=== PATIENT | female | born 1985 | race Caucasian/White ===

== ENCOUNTER 2021-10-01 15:21 | Emergency (ER) | payer BC, SELFPAY ==
--- NOTE | ~2021-10-01 | CT_ITS ---
EXAMINATION: CT ANGIOGRAM OF THE CHEST WITH AND WITHOUT CONTRAST (CT PULMONARY ANGIOGRAM FOR PE) CLINICAL INFORMATION: Reason for Exam COVID positive, 09/16/2021, chest pain, SOB, r/o PE COMPARISON: None TECHNIQUE: Prior to contrast administration, noncontrast localization images were obtained. Subsequently, multidetector volumetric imaging was performed from the thoracic inlet to below the diaphragms following the administration of 80 mL Omnipaque 350 intravenous contrast. No contrast reaction reported Sagittal, coronal, and MIP oblique sagittal reformatted images were obtained on the CT workstation, uploaded to PACS, and reviewed. This CT examination was performed using dose optimization techniques as appropriate, variously including the following: *Automated exposure control *Adjustment of mA and/or kV according to patient size (this includes techniques or standardized protocols for targeted exams where dose is matched to indication/reason for exam; i.e. extremities or head) *Use of iterative reconstruction technique Total exam dose-length product 257 mGy-cm FINDINGS: QUALITY OF STUDY/CONTRAST BOLUS: Satisfactory. PULMONARY ARTERIES: No pulmonary embolism. THORACIC AORTA: No thoracic aortic aneurysm. LUNG: A distal mucus impacted bronchus is noted in the left lower lobe, 8:303, with few adjacent tree in bud nodules PLEURA: No pleural effusion or pneumothorax. MEDIASTINUM: Normal heart size. No pericardial effusion. No hilar or mediastinal lymphadenopathy. No evidence of septal bowing or right heart strain. CHEST WALL/AXILLA: No axillary or internal mammary lymphadenopathy. OSSEOUS STRUCTURES: No acute or suspicious osseous abnormality. UPPER ABDOMEN: Status post cholecystectomy. No reflux of contrast into the hepatic veins to suggest elevated right heart pressures. CT/CT angio chest PE protocol IMPRESSION: No pulmonary nodules. A distal mucus impacted bronchus is noted in the left lower lobe with few adjacent tree in bud nodules, morphologically favoring a focus of airways infection/inflammation. An optional month follow-up CT could be considered to assess stability or resolution if patient is high risk for malignancy. VTE: negative
[2021-10-01 15:27] VITALS: BP 119/98; PULSE 116; RESP 18; TEMP 36.5; O2SAT 99; BMI 21.6
--- NOTE | 2021-10-01 15:31 | ECG_ITS ---
Test Reason : CHEST PAIN Blood Pressure : / mmHG Vent. Rate : 114 BPM Atrial Rate : 114 BPM P-R Int : 136 ms QRS Dur : 070 ms QT Int : 314 ms P-R-T Axes : 041 023 041 degrees QTc Int : 432 ms Sinus tachycardia Nonspecific ST abnormality Abnormal ECG No previous ECGs available Referred By: Generic ED Physician Electronically Signed By:DEANNA NGUYEN MD
[2021-10-01 15:49] LABS: MANUAL DIFF FLAG NO
[2021-10-01 15:59] LABS: Basophils Percent Auto 0.4 % (0-2); Eosinophils Absolute Auto 0.2 X10*3/uL (0.0-0.4); Eosinophils Percent Auto 1.7 % (0-4); Hematocrit 41.7 % (37.0-47.0); Hemoglobin 13.4 g/dl (12.0-16.0); Imm Gran Abs Auto 0.04 X10*3/uL (0.00-0.03); Imm Gran Pct Auto 0.4 % (0.0-0.4); Lymphocytes Absolute Auto 4.6 X10*3/uL (1.2-4.9); Lymphocytes Percent Auto 41.1 % (20-40); Mean Corpuscular HGB Conc 32.1 g/dl (31.0-35.0); Mean Corpuscular Hemoglobin 27.2 pg (27.0-33.0); Mean Corpuscular Volume 84.8 fL (80.0-98.0); Monocytes Absolute Auto 1.1 X10*3/uL (0.1-1.2); Neutrophils Absolute Auto 5.2 x10*3/uL (2.0-8.3); Neutrophils Percent Auto 46.4 % (45-73); Platelet Count 344 X10*3/uL (160-400); Red Blood Count 4.92 X10*6/uL (4.20-5.50); Red Cell Distribution Width 12.3 % (11.0-16.0); White Blood Count 11.1 X10*3/uL (4.8-10.8)
[2021-10-01 16:02] LABS: D Dimer High Sensitivity < 150 NG/ML
[2021-10-01 16:10] LABS: Alanine Aminotransferase 24 U/L (0-31); Albumin Level 4.5 g/dL (3.5-5.0); Alkaline Phosphatase 85 U/L (39-117); Anion Gap 14 (12-20); Aspartate Amino Transferase 19 U/L (5-31); Bilirubin Total 0.2 mg/dL (0.0-1.0); Blood Urea Nitrogen 10 mg/dL (9-16); Calcium 9.9 mg/dL (8.4-10.2); Carbon Dioxide 24 mmol/L (22-29); Chloride 103 mmol/L (96-108); Creatinine Clr Calc Pharmacy 85.8; Estimated Glomerular Filt Rate > 60; Glucose Random 107 mg/dL (60-115); Potassium 3.7 mmol/L (3.3-5.1); Sodium 137 mmol/L (135-145); Total Protein 7.7 g/dL (6.5-8.0)
[2021-10-01 16:13] LABS: INTERNATIONAL NORM RATIO 0.9 (0.9-1.1); Prothrombin Time 10.5 SEC (9.9-13.0)
[2021-10-01 16:15] LABS: Appearance Urine CLEAR; Color Urine YELLOW; Glucose Urine UA NEG (NEG); Leukocyte Esterase Urine NEG (NEG); Nitrite Urine NEG (NEG); Urine Blood NEG (NEG); Urine Ketones NEG (NEG); Urine Protein NEG (NEG-TRACE)
[2021-10-01 16:15] LABS: Partial Thromboplastin Time 30.9 SEC (24.1-38.0)
[2021-10-01 16:20] LABS: UPreg QC Valid YES; Urine Pregnancy NEGATIVE (NEGATIVE)
[2021-10-01 16:47] LABS: Procalcitonin < 0.02 ng/mL
[2021-10-01 16:48] LABS: Troponin-I High Sensitivity < 3.5 ng/L (<3.5-17.0)
[2021-10-01 16:49] LABS: C Reactive Protein 0.04 mg/dL (< or = 0.50); Erythrocyte Sedimentation Rate 6 MM/HR (0-20); Lactate Dehydrogenase 186 U/L (122-220)
[2021-10-01] MEDS: 0.9 % Sodium Chloride 1,000 ML 999 ML IV (16:55)
[2021-10-01] MEDS: LORazepam 2 MG/ML VIAL 1 MG IVPUSH (16:55)
[2021-10-01 17:11] LABS: Ferritin 44 ng/mL (10-122)
[2021-10-01] MEDS: iohexoL 350 MG/ML 100 ML INFUS..BTL IV (17:25)
[2021-10-01] MEDS: Ketorolac Tromethamine 30 MG/ML VIAL 15 MG IVPUSH (17:51)
--- NOTE | 2021-10-01 18:12 | PC.NURSE ---
pt awaiting ct results, states chest tightness almost resolved after medication
--- NOTE | 2021-10-01 18:43 | ED_ITS ---
HPI - Chest Pain General Chief Complaint: Arrhythmia/Palpitations Stated Complaint: high pulse rate Time Seen by Provider: 10/01/21 16:00 Source: patient Mode of arrival: ambulatory Limitations: no limitations History of Present Illness HPI narrative: 36-year-old female who presents emergency department for evaluation rapid heart rate, chest pain, shortness of breath and decreased O2 saturation. The patient states that she became symptomatic on 09/17/2021 and tested positive for COVID on 09/19/2021 ( symptomatic 14 days prior to evaluation ) patient states that she has been experiencing headaches, shortness of breath, dyspnea on exertion, fever, chills and fatigue. She states she has been monitoring her O2 saturation at home and her O2 saturations have been in the 94-96% range. She states that prior to coming to the emergency department she felt her heart was fluttering and racing. She checked her pulse ox and her pulse was 116 her O2 saturation was 91%. She also developed pain in the center of her chest which she describes as a tightness which was worse if she pushes on her chest and impr stef if she took a deep breath in and out. She states the tightness with moderate to severe in intensity. She felt dizzy and lightheaded. She states since onset the tightness is been intermittent and seems to last 10-15 minutes and comes and goes. Patient states she does have anxiety and she states that her anxiety got significantly worse after the onset of her symptoms. She states she was experiencing numbness in both her hands and feet and felt lightheaded dizzy as if she was going to pass out. 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 She has a history of exercise an allergy induced asthma. Surgical history: Repair of her club foot when she was a child, cholecystectomy. Social history: The patient denies tobacco use. She occasionally drinks alcohol. She denies drug use. Medical History COVID-19 COVID-19 Social History Social History Advance Directives: No Advance Directives Information Provided: No Patient : No Physical Exam Verdana 4l Vital Signs: Verdana 4d Verdana 4d Vital Signs: Verdana 4d Verdana 4Bd Last Vital Signs Verdana 4d Business Development Representative New 4d Business Development Representative New 4d Temp 97.7 F 10/01/21 15:27 Business Development Representative New 4d Pulse 116 H 10/01/21 15:27 Business Development Representative New 4d Resp 18 10/01/21 15:27 BP 119/98 H 10/01/21 15:27 Pulse Ox 99 10/01/21 15:27 BMI result Body Mass Index 21.6 Const: Other: Awake, alert, female patient, very pleasant and cooperative she does appear to be anxious, answers all questions appropriately HENMT: Head: Yes normal to inspection, Yes normocephalic and Yes atraumatic Ears: external ears normal General nose exam: Normal external nose present Face and sinus: Yes normal facial exam Mouth: Normal oral and palatal mucosa present Throat: Yes posterior oropharynx normal Eyes: General: appearance normal, both eyes and all related structures Pupils: Equal, round and reactive pupils present Neck: Neck: Yes normal visual inspection, Yes no lymphadenopathy, Yes trachea midline and Yes supple Chest: Chest palpation & inspection: normal inspection of the chest and normal palpation of entire chest wall Resp: Effort & Inspection: normal respiratory effort and able to speak in complete sentences Auscultation: clear to auscultation bilaterally Cardio: Rate: tachycardic Rhythm: regular rhythm Heart sounds: S1 normal heart sound present, S2 normal heart sound present and no murmurs GI: Inspection: Yes normal to inspection Palpation (GI): Soft to palpation, nontender and no guarding Auscultation: normal bowel sounds : General: Yes no CVA tenderness Back/Spine/Pelvis: Back: no CVA tenderness Skin: General skin exam: no rashes or lesions noted Neuro: Cranial nerves: Yes CN's II-XII intact bilaterally and Yes Equal, round and reactive pupils present Cognition (Neuro): normal cognition Motor exam (neuro): 5/5 motor strength present throughout Extrem: General: Yes normal to inspection Psych: Appearance: grossly normal Speech and movement: Normal speech and movement present Affect: normal affect Attitude: cooperative Thought process: Normal thought process present Thought content: Normal thought content present Course Course Course Narrative: 36-year-old female who had symptoms of COVID approximately 14 days prior in tested positive approximately 12 days prior to evaluation who presents emergency department for evaluation of sudden onset of chest tightness, tachycardia and a decrease in her O2 saturation from 96% to 91% on room air. Patient also presents for evaluation of anxiety. She states that she has baseline anxiety but since she has had COVID she has been more anxious. On initial presentation, the patient was found to be tachycardic With a pulse of 116 but her O2 saturation was 99% on room air. Patient had 12 EKG which did reveal less than [address] segment depression in leads 1, 2, AVF and approximately [address] segment depression in V3 through V6. On my examination the patient was anxious otherwise her exam was unremarkable. Patient's laboratory evaluation revealed a normal CBC, non elevated D-dimer, normal comprehensive metabolic panel, non elevated COVID-19 inflammatory markers ( D-dimer, CRP, LDH, ferritin, sedimentation rate ). CT scan of the patient's chest revealed no pulmonary embolism, the radiologist noted a distal mucus impacted bronchitis in the left lower lobe with few adjacent tree-in-bud nodules suggesting focal airway infection/information. Radiologist recommended follow-up in 1 month with [address] scan if patient is at high risk for malignancy which I do not think is the case in this patient. I believe that this may represent mucous plugging and I do not think that she needs antibiotics. The patient will be discharged home with printed and verbal instructions. MDM - Chest Pain Lab Data Result diagrams: 10/01/21 15:44 10/01/21 15:44 Labs: Lab Results 10/01/21 10/01/21 10/01/21 Range/Units 15:44 15:44 15:44 WBC 11.1 H (4.8-10.8) X10*3/uL RBC 4.92 (4.20-5.50) X10*6/uL Hgb 13.4 (12.0-16.0) g/dl Hct 41.7 (37.0-47.0) % MCV 84.8 (80.0-98.0) fL MCH 27.2 (27.0-33.0) pg MCHC 32.1 (31.0-35.0) g/dl RDW 12.3 (11.0-16.0) % Plt Count 344 (160-400) X10*3/uL MPV 10.0 (9.4-12.3) fL Immature Gran % (Auto) 0.4 (0.0-0.4) % Neut % (Auto) 46.4 (45-73) % Lymph % (Auto) 41.1 H (20-40) % [place] % (Auto) 10.0 (2-11) % Eos % (Auto) 1.7 (0-4) % Baso % (Auto) 0.4 (0-2) % Lymph # (Auto) 4.6 (1.2-4.9) X10*3/uL [place] # (Auto) 1.1 (0.1-1.2) X10*3/uL Eos # (Auto) 0.2 (0.0-0.4) X10*3/uL Baso # (Auto) 0.0 (0.0-0.2) X10*3/uL Abs Immat Gran (auto) 0.04 H (0.00-0.03) X10*3/uL Absolute Neuts (auto) 5.2 (2.0-8.3) x10*3/uL Absolute Nucleated RBC 0.000 (0.0-0.012) X10*3/uL Nucleated RBC % (auto) 0.0 (0.0-0.2) /100WBC ESR (0-20) MM/HR PT 10.5 (9.9-13.0) SEC INR 0.9 (0.9-1.1) APTT 30.9 (24.1-38.0) SEC D-Dimer High Sensitivty < 150 NG/ML Sodium 137 (135-145) mmol/L Potassium 3.7 (3.3-5.1) mmol/L Chloride 103 (96-108) mmol/L Carbon Dioxide 24 (22-29) mmol/L Anion Gap 14 (12-20) BUN 10 (9-16) mg/dL Creatinine 0.89 (0.5-1.4) mg/dL Estim Creat Clear Calc 85.8 Estimated GFR > 60 Random Glucose 107 (60-115) mg/dL Calcium 9.9 (8.4-10.2) mg/dL Ferritin 44 (10-122) ng/mL Total Bilirubin 0.2 (0.0-1.0) mg/dL AST 19 (5-31) U/L ALT 24 (0-31) U/L Alkaline Phosphatase 85 (39-117) U/L Lactate Dehydrogenase 186 (122-220) U/L Troponin I High Sens (<3.5-17.0) ng/L C-Reactive Protein 0.04 (< or = 0.50) mg/dL Total Protein 7.7 (6.5-8.0) g/dL Albumin 4.5 (3.5-5.0) g/dL Procalcitonin ng/mL Urine Color Urine Appearance Urine pH (5.0-8.0) Ur Specific [place] (1.005-1.025) Urine Protein (NEG-TRACE) MG/DL Urine Glucose (UA) (NEG) MG/DL Urine Ketones (NEG) MG/DL Urine Blood (NEG) Urine Nitrite (NEG) Ur Leukocyte Esterase (NEG) Urine Test (NEGATIVE) 10/01/21 10/01/21 10/01/21 Range/Units 15:44 15:44 15:44 WBC (4.8-10.8) X10*3/uL RBC (4.20-5.50) X10*6/uL Hgb (12.0-16.0) g/dl Hct (37.0-47.0) % MCV (80.0-98.0) fL MCH (27.0-33.0) pg MCHC (31.0-35.0) g/dl RDW (11.0-16.0) % Plt Count (160-400) X10*3/uL MPV (9.4-12.3) fL Immature Gran % (Auto) (0.0-0.4) % Neut % (Auto) (45-73) % Lymph % (Auto) (20-40) % [place] % (Auto) (2-11) % Eos % (Auto) (0-4) % Baso % (Auto) (0-2) % Lymph # (Auto) (1.2-4.9) X10*3/uL [place] # (Auto) (0.1-1.2) X10*3/uL Eos # (Auto) (0.0-0.4) X10*3/uL Baso # (Auto) (0.0-0.2) X10*3/uL Abs Immat Gran (auto) (0.00-0.03) X10*3/uL Absolute Neuts (auto) (2.0-8.3) x10*3/uL Absolute Nucleated RBC (0.0-0.012) X10*3/uL Nucleated RBC % (auto) (0.0-0.2) /100WBC ESR 6 (0-20) MM/HR PT (9.9-13.0) SEC INR (0.9-1.1) APTT (24.1-38.0) SEC D-Dimer High Sensitivty NG/ML Sodium (135-145) mmol/L Potassium (3.3-5.1) mmol/L Chloride (96-108) mmol/L Carbon Dioxide (22-29) mmol/L Anion Gap (12-20) BUN (9-16) mg/dL Creatinine (0.5-1.4) mg/dL Estim Creat Clear Calc Estimated GFR Random Glucose (60-115) mg/dL Calcium (8.4-10.2) mg/dL Ferritin (10-122) ng/mL Total Bilirubin (0.0-1.0) mg/dL AST (5-31) U/L ALT (0-31) U/L Alkaline Phosphatase (39-117) U/L Lactate Dehydrogenase (122-220) U/L Troponin I High Sens < 3.5 (<3.5-17.0) ng/L C-Reactive Protein (< or = 0.50) mg/dL Total Protein (6.5-8.0) g/dL Albumin (3.5-5.0) g/dL Procalcitonin < 0.02 ng/mL Urine Color Urine Appearance Urine pH (5.0-8.0) Ur Specific [place] (1.005-1.025) Urine Protein (NEG-TRACE) MG/DL Urine Glucose (UA) (NEG) MG/DL Urine Ketones (NEG) MG/DL Urine Blood (NEG) Urine Nitrite (NEG) Ur Leukocyte Esterase (NEG) Urine Test (NEGATIVE) 10/01/21 10/01/21 Range/Units 16:01 16:01 WBC (4.8-10.8) X10*3/uL RBC (4.20-5.50) X10*6/uL Hgb (12.0-16.0) g/dl Hct (37.0-47.0) % MCV (80.0-98.0) fL MCH (27.0-33.0) pg MCHC (31.0-35.0) g/dl RDW (11.0-16.0) % Plt Count (160-400) X10*3/uL MPV (9.4-12.3) fL Immature Gran % (Auto) (0.0-0.4) % Neut % (Auto) (45-73) % Lymph % (Auto) (20-40) % [place] % (Auto) (2-11) % Eos % (Auto) (0-4) % Baso % (Auto) (0-2) % Lymph # (Auto) (1.2-4.9) X10*3/uL [place] # (Auto) (0.1-1.2) X10*3/uL Eos # (Auto) (0.0-0.4) X10*3/uL Baso # (Auto) (0.0-0.2) X10*3/uL Abs Immat Gran (auto) (0.00-0.03) X10*3/uL Absolute Neuts (auto) (2.0-8.3) x10*3/uL Absolute Nucleated RBC (0.0-0.012) X10*3/uL Nucleated RBC % (auto) (0.0-0.2) /100WBC ESR (0-20) MM/HR PT (9.9-13.0) SEC INR (0.9-1.1) APTT (24.1-38.0) SEC D-Dimer High Sensitivty NG/ML Sodium (135-145) mmol/L Potassium (3.3-5.1) mmol/L Chloride (96-108) mmol/L Carbon Dioxide (22-29) mmol/L Anion Gap (12-20) BUN (9-16) mg/dL Creatinine (0.5-1.4) mg/dL Estim Creat Clear Calc Estimated GFR Random Glucose (60-115) mg/dL Calcium (8.4-10.2) mg/dL Ferritin (10-122) ng/mL Total Bilirubin (0.0-1.0) mg/dL AST (5-31) U/L ALT (0-31) U/L Alkaline Phosphatase (39-117) U/L Lactate Dehydrogenase (122-220) U/L Troponin I High Sens (<3.5-17.0) ng/L C-Reactive Protein (< or = 0.50) mg/dL Total Protein (6.5-8.0) g/dL Albumin (3.5-5.0) g/dL Procalcitonin ng/mL Urine Color YELLOW Urine Appearance CLEAR Urine pH 6.0 (5.0-8.0) Ur Specific [place] 1.010 (1.005-1.025) Urine Protein NEG (NEG-TRACE) MG/DL Urine Glucose (UA) NEG (NEG) MG/DL Urine Ketones NEG (NEG) MG/DL Urine Blood NEG (NEG) Urine Nitrite NEG (NEG) Ur Leukocyte Esterase NEG (NEG) Urine Test NEGATIVE (NEGATIVE) ECG Data ECG #1: Attestation: I personally reviewed and interpreted this ECG as follows: Interpretation: 1534: Sinus tachycardia with a rate of 114, normal ID interval, QRS duration and QTC interval, less than [address] segment depression leads 1, 2 and AVF, [address] segment depression V3 through V6. No old EKG for comparison. Discharge Plan Discharge Clinical Impression: Chest pain, Anxiety, Tachycardia, COVID-19 Patient Disposition: Home, Self-Care Additional Instructions: Your blood work was all normal. There are several inflammatory markers for COVID infection and COVID pneumonia, all of your inflammatory marker were normal, these included a D-dimer, CRP, sedimentation rate, ferritin and LDH. Given this fact, I suspect that you have cleared the COVID-19 virus and you can come off isolation and return to normal precautions. There is a marker for heart damaged called the high sensitivity troponin I. Yours was undetectable suggesting that your chest pain was not caused by your heart. The CT scan of your lungs with IV contrast looking for pulmonary embolism (blood clot to your lungs) was negative for blood clot your lungs which is reassuring. You do have some mucus in your bronchials and this is called mucus plugging, this should resolve by itself. You do not need antibiotics. Some of your symptoms today including the shortness of breath, fast heart rate, lightheadedness and numbness in your hands is related to anxiety. You should consider following up with her doctor for treatment anxiety. Follow-up with your doctor in 2 days. Please return to the emergency department if your symptoms get worse or if you develop any symptoms that are concerning to you.
[2021-10-01 19:37] VITALS: BP 135/84; PULSE 96; RESP 16; O2SAT 98
[2021-10-01 19:38] VITALS: BP 135/84; PULSE 96; RESP 16
== END 2021-10-01 19:40 | disposition home or self-care (01) ==
PROVIDERS: Emergency Provider Emergency Medicine Emergency Medical Services; PCP Internal Medicine
DX: U07.1 COVID-19 (principal); R07.9 Chest pain, unspecified; R00.0 Tachycardia, unspecified; F41.9 Anxiety disorder, unspecified
CPT/HCPCS: 36415; 71275; 80053; 81003; 81025; 82728; 83615; 84145; 84484; 85025; 85379; 85610; 85652; 85730; 86140; 93005; 96361; 96374; 96375; 99284; J1885; J2060; Q9967

== ENCOUNTER 2023-09-15 23:57 | Emergency (ER) | payer BC, SELFPAY ==
--- NOTE | 2023-09-15 | ECG_ITS ---
Test Reason : CHEST TIGHTNESS Blood Pressure : / mmHG Vent. Rate : 087 BPM Atrial Rate : 087 BPM P-R Int : 124 ms QRS Dur : 070 ms QT Int : 362 ms P-R-T Axes : 005 001 013 degrees QTc Int : 435 ms Normal sinus rhythm with sinus arrhythmia Normal ECG When compared with ECG of 01-OCT-2021 15:34, Inverted T waves have replaced nonspecific T wave abnormality in Inferior leads Referred By: Generic ED Physician Electronically Signed By:DEANNA NGUYEN MD
--- NOTE | ~2023-09-15 | XR_ITS ---
EXAMINATION: XR CHEST CLINICAL INFORMATION: Rule out pneumonia. COMPARISON: CT dated 10/01/2021 TECHNIQUE: AP portable upright view of the chest FINDINGS: EKG leads are within the chest. Lungs are clear. No consolidation, pneumothorax, or pleural effusion. Cardiac and mediastinal contours are normal. Pulmonary vasculature is unremarkable. Osseous structures are unremarkable. XR/XR chest 1V IMPRESSION: No acute cardiopulmonary findings
[2023-09-16 00:14] VITALS: BP 186/78; PULSE 87; RESP 19; TEMP 36.2; O2SAT 98; BMI 22.5
[2023-09-16 00:17] LABS: MANUAL DIFF FLAG NO
[2023-09-16 00:19] LABS: Basophils Percent Auto 0.5 % (0-2); Eosinophils Percent Auto 0.5 % (0-4); Hemoglobin 12.9 g/dl (12.0-16.0); Imm Gran Abs Auto 0.01 X10*3/uL (0.00-0.03); Imm Gran Pct Auto 0.2 % (0.0-0.4); Lymphocytes Absolute Auto 1.7 X10*3/uL (1.2-4.9); Lymphocytes Percent Auto 26.5 % (20-40); Mean Corpuscular HGB Conc 33.1 g/dl (31.0-35.0); Mean Corpuscular Volume 84.6 fL (80.0-98.0); Mean Platelet Volume 9.9 fL (9.4-12.3); Monocytes Absolute Auto 1.1 X10*3/uL (0.1-1.2); Monocytes Percent Auto 16.2 % (2-11); Neutrophils Absolute Auto 3.7 x10*3/uL (2.0-8.3); Neutrophils Percent Auto 56.1 % (45-73); Platelet Count 243 X10*3/uL (160-400); Red Blood Count 4.61 X10*6/uL (4.20-5.50); Red Cell Distribution Width 12.8 % (11.0-16.0); White Blood Count 6.5 X10*3/uL (4.8-10.8)
[2023-09-16 00:41] LABS: Alanine Aminotransferase 84 U/L (0-31); Albumin Level 4.4 g/dL (3.5-5.0); Alkaline Phosphatase 93 U/L (39-117); Anion Gap 11 (12-20); Aspartate Amino Transferase 54 U/L (5-31); Bilirubin Direct < 0.2 mg/dL (0.0-0.5); Bilirubin Total 0.1 mg/dL (0.0-1.0); Blood Urea Nitrogen 13 mg/dL (9-16); Calcium 9.3 mg/dL (8.4-10.2); Carbon Dioxide 23 mmol/L (22-29); Chloride 109 mmol/L (96-108); Creatinine Clr Calc Pharmacy 89.2; Estimated Glomerular Filt Rate > 60; Glucose Random 128 mg/dL (60-115); Lipase 31 U/L (8-78); Potassium 3.3 mmol/L (3.3-5.1); Sodium 140 mmol/L (135-145); Total Protein 7.6 g/dL (6.5-8.0)
[2023-09-16 00:49] LABS: Troponin-I High Sensitivity < 2.7 ng/L (<3.5-17.0)
--- NOTE | 2023-09-16 01:12 | ED_ITS ---
HPI - Chest Pain General Chief Complaint: Chest Pain Stated Complaint: chest tightness, sob Time Seen by Provider: 09/16/23 01:03 Source: patient and family Mode of arrival: ambulatory Limitations: no limitations History of Present Illness HPI narrative: Patient comes to the emergency room accompanied by her . Patient complaining of a cough for several days. Patient states that she is prone to developing pneumonia. Patient states that she has an O2 monitor at home, patient became concerned because he was given her strange readings ranging between bradycardia and tachycardia and unclear oxygen saturations. Patient states that she has history of arrhythmias, patient had a Holter monitor study done couple of years ago, it was negative per patient. Patient states that her primary care physician has already ordered an echocardiogram to rule out any other abnormalities. According to the patient, she is being worked up for Ehler Danlos syndrome Related Data Previous Rx's Medication Instructions Recorded benzonatate 100 mg capsule 100 mg PO TID PRN cough #10 caps 09/16/23 ibuprofen 600 mg tablet 600 mg PO Q8H PRN fever or pain 09/16/23 #20 tabs Allergies Allergy/AdvReac Type Severity Reaction Status Date / Time albuterol [From Ventolin HFA] Allergy Unknown Verified 09/16/23 00:22 Penicillins Allergy Unknown Verified 10/01/21 15:27 Review of Systems 2 Review of Systems: Constitutional : No Weight loss, No Fever, No Chills, No Night Sweats, No Fatigue, No Malaise ENT/Mouth : No Hearing loss, No Ear Pain, No Nasal Congestion, No Sinus Pain, No Hoarseness, No sore throat, No Rhinorrhea, No Swallowing Difficulty Eyes: No Eye Pain, No Swelling, No Redness, No Foreign Body, No Discharge, No Vision Changes Cardiovascular : No Chest Pain, No SOB, No Dyspnea on Exertion, No Orthopnea, No Edema, No Palpitations Respiratory : Complaining of cough with sputum, No Wheezing, No Smoke Exposure, No Dyspnea Gastrointestinal : No Nausea, No Vomiting, No Diarrhea, No Constipation, No abdominal Pain, No Hematochezia, No Melena Genitourinary : no irregular bleeding, No Dysuria, No Urinary Frequency, No Hematuria, No Urinary Incontinence, No Urgency, No Flank Pain, No Urinary Flow Changes, No Hesitancy Musculoskeletal : No joint pain, No Myalgias, No Joint Swelling Skin : No Skin Lesions, No rash Neuro : No Weakness, No Numbness, No Paresthesias, No Loss of Consciousness, No Dizziness, No Headache Psych : No Anxiety/Panic, No Depression, No SI/HI/AH/VH, No Social Issues, Heme/Lymph: No Bruising, No Bleeding,No Lymphadenopathy Endocrine : No Polyuria, No Polydipsia, No Temperature Intolerance PMFSH Past Medical History Onset Date is defined in the Problem List Problems that require an onset date and time if occurred within 24 hrs of arrival to the ED Aortic Dissection and Rupture; Neurologic impairment; Cardiopulmonary Arrest; Endotracheal Intubation; Insertion or Replacement of Mechanical Circulatory Assist Device Medical History COVID-19 COVID-19 Social History Social History Alcohol intake: current Alcohol intake frequency: holidays/special occasions only Smoked in Last 30 Days: No Use of substances other than those prescribed or required for medical reasons: No Advance Directives: No Advance Directives Information Provided: Yes Patient : No Physical Exam 2 Vital Signs: Vital Signs: Last Vital Signs Temp 98.6 F 09/16/23 01:14 Pulse 103 H 09/16/23 01:14 Resp 15 09/16/23 01:14 BP 146/79 H 09/16/23 01:14 Pulse Ox 98 09/16/23 01:14 O2 Del Method Room Air 09/16/23 01:14 BMI result Body Mass Index 22.5 Const: Other: Appearance: Alert. Oriented X3. No acute distress. Well-appearing Eyes: Pupils equal, round and reactive to light. ENT: Pharynx normal. Neck: Normal inspection. Neck supple. No lymph nodes noted. No crepitus CVS: Normal heart rate and rhythm. Pulses normal. Normal S1 and S2 Respiratory: No respiratory distress. Bilateral friction rub sounds, No Wheezing. No rales oxygen saturation 98% on room air Abdomen: Soft and nontender. No rigidity. No distention. Skin: Skin warm and dry. Normal skin color. Normal skin turgor. Extremities: No lower extremity edema. No Lacerations. No Rash Neuro: Oriented X 3. No motor deficit. No sensory deficit. Moving all extremities. No slurred speech. CN 2 through 12 grossly intact Psych: calm, cooperative, normal affect Medical Decision Making Medical Decision Making [facility] Narrative: -my interpretation of labs: Normal hematology and chemistry, normal troponin, serology negative for COVID and influenza -my interpretation of EKG: Normal sinus rhythm, heart rate 87, no ST segment depression or elevation, nonspecific T-wave inversion in lead 3, QTC 435 -my interpretation of chest x-ray: No pneumonia Differential Diagnosis Differential Diagnoses: The differential diagnosis associated with the presentation includes (COVID, influenza, URI, bronchitis) Lab Data [facility] Lab Attestation statement: I reviewed the patient's lab results. 09/16/23 00:13 09/16/23 00:13 Labs: Lab Results 09/16/23 09/16/23 Range/Units 00:13 01:22 WBC 6.5 (4.8-10.8) X10*3/uL RBC 4.61 (4.20-5.50) X10*6/uL Hgb 12.9 (12.0-16.0) g/dl Hct 39.0 (37.0-47.0) % MCV 84.6 (80.0-98.0) fL MCH 28.0 (27.0-33.0) pg MCHC 33.1 (31.0-35.0) g/dl RDW 12.8 (11.0-16.0) % Plt Count 243 D (160-400) X10*3/uL MPV 9.9 (9.4-12.3) fL Immature Gran % (Auto) 0.2 (0.0-0.4) % Neut % (Auto) 56.1 (45-73) % Lymph % (Auto) 26.5 (20-40) % [place] % (Auto) 16.2 H (2-11) % Eos % (Auto) 0.5 (0-4) % Baso % (Auto) 0.5 (0-2) % Lymph # (Auto) 1.7 (1.2-4.9) X10*3/uL [place] # (Auto) 1.1 (0.1-1.2) X10*3/uL Eos # (Auto) 0.0 (0.0-0.4) X10*3/uL Baso # (Auto) 0.0 (0.0-0.2) X10*3/uL Abs Immat Gran (auto) 0.01 (0.00-0.03) X10*3/uL Absolute Neuts (auto) 3.7 (2.0-8.3) x10*3/uL Absolute Nucleated RBC 0.000 (0.0-0.012) X10*3/uL Nucleated RBC % (auto) 0.0 (0.0-0.2) /100WBC Sodium 140 (135-145) mmol/L Potassium 3.3 (3.3-5.1) mmol/L Chloride 109 H (96-108) mmol/L Carbon Dioxide 23 (22-29) mmol/L Anion Gap 11 L (12-20) BUN 13 (9-16) mg/dL Creatinine 0.84 (0.5-1.4) mg/dL Estim Creat Clear Calc 89.2 Estimated GFR > 60 Random Glucose 128 H (60-115) mg/dL Calcium 9.3 D (8.4-10.2) mg/dL Total Bilirubin 0.1 (0.0-1.0) mg/dL Direct Bilirubin < 0.2 (0.0-0.5) mg/dL AST 54 H (5-31) U/L ALT 84 H (0-31) U/L Alkaline Phosphatase 93 (39-117) U/L Troponin I High Sens < 2.7 (<3.5-17.0) ng/L Total Protein 7.6 (6.5-8.0) g/dL Albumin 4.4 (3.5-5.0) g/dL Lipase 31 (8-78) U/L COVID-19 (RAKAN) Negative (Negative) COVID-19 Clin Com See Note Influenza Type A (SAMEER) Negative (Negative) Influenza Type B (SAMEER) Negative (Negative) Influenza A & B Note See Note Independent Interpretation I performed an independent interpretation of an: Plain X-Ray Radiology Impression Discussion of test interpretation with radiology: I have reviewed the radiologist's reading. Radiologist Impression: FINDINGS: EKG leads are within the chest. Lungs are clear. No consolidation, pneumothorax, or pleural effusion. Cardiac and mediastinal contours are normal. Pulmonary vasculature is unremarkable. Osseous structures are unremarkable. XR/XR chest 1V IMPRESSION: No acute cardiopulmonary findings Independent Historian Clinical information obtained from an independent historian. History obtained from or confirmed by: Spouse Discharge Plan Discharge Clinical Impression: Acute viral bronchitis Patient Disposition: Home, Self-Care Instructions: Acute Bronchitis (ED) Additional Instructions: Please follow-up with your primary care physician tomorrow. If you have any worsening or new symptoms, please return to the emergency room or call 911 Prescriptions: New benzonatate 100 mg capsule 100 mg PO TID PRN (Reason: cough) Qty: 10 0RF ibuprofen 600 mg tablet 600 mg PO Q8H PRN (Reason: fever or pain) Qty: 20 0RF
[2023-09-16 01:14] VITALS: BP 146/79; PULSE 103; RESP 15; TEMP 37; O2SAT 98
[2023-09-16 01:45] LABS: COVID-19 Test Negative (Negative); IDNOW Serial# 16C4AD1C; IDNOW Serial# 55D5AD1C; Influenza A Negative (Negative); Influenza B2 Negative (Negative)
[2023-09-16] MEDS: Benzonatate 100 MG CAPSULE 200 MG PO (02:03)
[2023-09-16 02:04] VITALS: BP 132/87; PULSE 95; RESP 12; TEMP 37.1; O2SAT 97
== END 2023-09-16 02:20 | disposition home or self-care (01) ==
PROVIDERS: Emergency Provider Emergency Medicine
DX: J20.8 Acute bronchitis due to other specified organisms (principal); R07.89 Other chest pain; R06.02 Shortness of breath; I49.9 Cardiac arrhythmia, unspecified; R05.9 Cough, unspecified; Z11.52 Encounter for screening for COVID-19; Z20.828 Contact with and (suspected) exposure to other viral communicable diseases; Z79.899 Other long term (current) drug therapy
CPT/HCPCS: 36415; 71045; 80048; 80076; 83690; 84484; 85025; 87502; 87635; 93005; 99284; 99285

== ENCOUNTER → 2023-09-15 | Outpatient (BNV) | payer BC, SELFPAY | PROVIDERS: Emergency Provider Emergency Medicine; Visit Provider Internal Medicine Cardiovascular Disease | DX: R07.89 Other chest pain (principal) | CPT/HCPCS: 93010 ==

== ENCOUNTER → 2023-11-07 12:56 | Outpatient (REF) | payer BC, SELFPAY ==
--- NOTE | 2023-11-07 12:59 | CA_ITS ---
Transthoracic Echocardiogram Patient (Last, First, Middle): Angelina Rogers C Gender: Female Date of : 1985 Age: 38 Procedure Date: 11/07/2023 Procedure Type: Transthoracic Echocardiogram Location: OP Height: 167.64 cm Weight: 64.41 kg BSA: 1.73 m2 Heart Rate: bpm BP: 122 / 60 mmHg Ortho/Prosthetic Aide: Referring MD: Eder Issa MD Symptoms: Palpitations Study Quality: Fair ECG Rhythm: Sinus Conclusions: - The left ventricular systolic function is normal. The calculated ejection fraction is 60% by biplane method. - No obvious valvular pathology seen on this study. Findings Left Ventricle Normal left ventricular cavity size. There is normal left ventricular wall thickness. The left ventricular systolic function is normal. The calculated ejection fraction is 60% by biplane method. There is no evidence of regional wall motion abnormalities. Diastolic function is normal for age. LV peak GLS -19.2%. Right Ventricle Normal right ventricular cavity size and systolic function. Atria Both atria are normal in size. Aortic Valve There is a normal trileaflet aortic valve. There is no aortic valve stenosis. There is no aortic valve regurgitation. Mitral Valve The mitral valve appears normal. There is trace mitral valve regurgitation. There is no mitral valve stenosis. Pulmonic Valve The pulmonic valve is likely normal. Tricuspid Valve There is trace tricuspid valve regurgitation. There is no evidence of pulmonary hypertension. Great Vessels The aortic annulus and sinuses of valsalva are normal in size. Venous The inferior vena cava is normal in size and collapses greater than 50% with inspiration. Pericardium/Pleural There is no evidence of pericardial effusion. Prior Study Comparison No prior study available for comparison. Recommendations, Care & Conclusions No obvious valvular pathology seen on this study. Measurements 2D Linear Measurements IVSd: 0.87 0.6-0.9/0.6-1.0 cm LVIDd: 3.54 3.9-5.3/4.2-5.9 cm LVIDd Index: 2.05 2.4-3.2/2.2-3.1 cm/m2 LVIDs: 2.10 2.0-3.6 cm LVPWd: 0.87 0.7-1.1 cm Ao Root: 2.80 2.1-3.5 cm LA Diam: 3.70 2.7-3.8/3.0-4.0 cm LAIDs Index: 2.14 1.5-2.3 cm/m2 LV Mass: 107.30 67-162/88-224 g LV Mass Index: 62.02 43-95/49-115 g/m2 LVOT Diam: 1.90 3.0+(-)1.3 cm 2D Systolic Function EF 4C: 62.00 >55% EF 2C: 62.00 >55% EF BiP: 59.80 >55% Mitral Valve MV Pk E: 0.94 MV PK A: 0.69 MV Decel Time: 165.00 E/A: 1.40 E'Lateral: 18.20 E'Medial: 11.10 E/E' Med: 8.50 E/E' Lat: 5.20 PHT: 48.00 MVA PHT: 4.58 Decel [place]: 5.70 Aortic Valve AoV Pk Venkat: 1.28 AoV Mn Venkat: 0.84 AoV VTI: 0.29 AoV Pk Grad: 7.00 Aov Mn Grad: 3.00 AYO Cont.VTI: 2.49 LVOT LVOT Pk Venkat: 1.20 LVOT Mn Venkat: 0.79 LVOT VTI: 0.26 LVOT Pk Grad: 6.00 LVOT Mn Grad: 3.00 LVOT Diam: 1.90 LVOT Area: 2.84 Diastolic Function MV Pk E: 0.94 MV Pk A: 0.69 E/A: 1.40 E'Medial: 11.10 E/E' Med: 8.50 E' Laterial: 18.20 E/E' Lat: 5.20 Right Ventricle TAPSE (mm): 24.00 TVS' Venkat: 11.00 Tricuspid Valve TR Pk Venkat: 2.39 TR Pk Grad: 23.00 RA Press: 3.00 RVSP: 26.00 Great Vessels Aorta Ao Root-2D: 2.80 2.0-3.7 cm Pulmonary Valve PV Pk Venkat: 1.04 Peak PV Grad: 4.00 Updated in Other Vendor System with Status of Final Alexandre Mendez MD electronically signed on 11/07/2023 12:01:49 PM with status of Final
== END ==
LOC: HO.CARD 12:56
PROVIDERS: PCP Internal Medicine; Visit Provider Internal Medicine
DX: R00.2 Palpitations (principal)
CPT/HCPCS: 93306; 93356

== ENCOUNTER → 2023-11-07 12:59 | Outpatient (BNV) | payer BC, SELFPAY | PROVIDERS: PCP Internal Medicine; Visit Provider Internal Medicine | DX: R00.2 Palpitations (principal) | CPT/HCPCS: 93306 ==

== ENCOUNTER 2024-10-14 22:16 | Emergency (ER) | payer OTHER, SELFPAY ==
--- NOTE | 2024-10-14 | ECG_ITS ---
Test Reason : CHEST PAIN Blood Pressure : */* mmHG Vent. Rate : 103 BPM Atrial Rate : 103 BPM P-R Int : 130 ms QRS Dur : 68 ms QT Int : 340 ms P-R-T Axes : 15 2 25 degrees QTcB Int : 445 ms Sinus tachycardia Nonspecific ST abnormality Abnormal ECG When compared with ECG of 16-Sep-2023 00:06, No significant change was found Referred By: Generic ED Physician Electronically Signed By: DEANNA NGUYEN MD
[2024-10-14 22:23] VITALS: BP 136/77; PULSE 103; RESP 24; TEMP 36.3; O2SAT 100; BMI 22.5
[2024-10-14 23:33] LABS: Hematocrit 38.1 % (37.0-47.0); Hemoglobin 12.7 g/dl (12.0-16.0); Mean Corpuscular HGB Conc 33.3 g/dl (31.0-35.0); Mean Corpuscular Hemoglobin 28.1 pg (27.0-33.0); Mean Corpuscular Volume 84.3 fL (80.0-98.0); Platelet Count 275 X10*3/uL (160-400); Red Blood Count 4.52 X10*6/uL (4.20-5.50); Red Cell Distribution Width 12.8 % (11.0-16.0); White Blood Count 10.3 X10*3/uL (4.8-10.8)
[2024-10-14 23:39] LABS: INTERNATIONAL NORM RATIO 0.8 (0.9-1.1); Prothrombin Time 9.7 SEC (10.9-12.4)
[2024-10-14 23:47] LABS: Alanine Aminotransferase 30 U/L (0-31); Albumin Level 4.1 g/dL (3.5-5.0); Alkaline Phosphatase 90 U/L (39-117); Anion Gap 14 (12-20); Aspartate Amino Transferase 21 U/L (5-31); Bilirubin Total 0.1 mg/dL (0.0-1.0); Blood Urea Nitrogen 12 mg/dL (9-16); Calcium 9.1 mg/dL (8.4-10.2); Carbon Dioxide 20 mmol/L (22-29); Chloride 111 mmol/L (96-108); Estimated Glomerular Filt Rate > 60; Glucose Random 102 mg/dL (60-115); Potassium 3.6 mmol/L (3.3-5.1); Sodium 141 mmol/L (135-145); Total Protein 7.1 g/dL (6.5-8.0)
[2024-10-15 00:03] LABS: Troponin-I High Sensitivity < 2.7 ng/L (<3.5-17.0)
[2024-10-15 05:01] VITALS: BP 119/73; PULSE 95; RESP 16; TEMP 36.5; O2SAT 100
--- NOTE | 2024-10-15 06:41 | ED.CHESTPAIN ---
HPI - Chest Pain General Chief Complaint: Chest Pain Stated Complaint: chest pain Time Seen by Provider: 10/15/24 06:40 Source: patient Mode of arrival: ambulatory Limitations: no limitations History of Present Illness ED Provider: ROMELIA JADE PA-C HPI narrative: 39 year old female with pmhx significant for anxiety presents to the ED today for evaluation of chest pain and palpitations that began acutely while seated on the toilet voiding around 2100 last night (9 hours ago). Reports feeling a bottom out sensation to mid chest with associated dizziness and chest tightness. Chest pain is sharp, not burning. No radiation. Denies syncope. She reports history of anxiety/ panic attacks. She currently follows with her provider for both GERD and anxiety. She is currently tapering off of her 0.5mg ativan, now only taking it q8 hours PRN anxiety. She was taking prolosec daily for her GERD, recently started on sucralfate. Admits to recent long car ride to [place] and [facility] (a total of approx 7 hours). Denies any fever, chills, sob, wheezing, dyspnea, hemoptysis, calf pain/swelling, cough. On my initial exam 9 hours after arriving in ED, she is calm however there is a slight anxious tone to her voice. Sleeping in room upon my entrance. Related Data Previous Rx's ?Medication ?Instructions ?Recorded benzonatate 100 mg capsule 100 mg PO TID PRN cough #10 caps 09/16/23 ibuprofen 600 mg tablet 600 mg PO Q8H PRN fever or pain 09/16/23 #20 tabs Allergies Allergy/AdvReac Type Severity Reaction Status Date / Time albuterol [From Ventolin HFA] Allergy Unknown Verified 10/14/24 22:31 Penicillins Allergy Unknown Verified 10/14/24 22:31 Review of Systems Review of Systems: Constitutional: No fever, chills, fatigue, night sweats, weight changes ENT/Mouth: No ear pain, hearing loss, nasal congestion, sinus pain, rhinorrhea, sore throat Eyes: No eye pain, swelling, redness, vision changes, discharge Cardio: No palpitations, MÉNDEZ, orthopnea, peripheral edema, +chest pain Pulm: No SOB, cough, sputum, wheezing, dyspnea, hemoptysis GI: No nausea, vomiting, hematemesis, abdominal pain, diarrhea, constipation, hematochezia, melena : No irregular bleeding, dysuria, frequency, urgency, hesitancy, hematuria, flank pain, urinary flow changes, urinary incontinence or retention MSK: No back pain, neck pain, joint pain, myalgias Skin: No lesions, rashes Neuro: No weakness, numbness, paresthesias, LOC, dizziness, headache Psych: No anxiety/panic, depression, SI/HI, AH/VH All other systems reviewed and are negative. [facility] Past Medical History Attestation statement: The following information was validated with the patient. Source: old records reviewed and nursing notes reviewed Medical History COVID-19 COVID-19 Social History Social History Alcohol intake: current Alcohol intake frequency: holidays/special occasions only Advance Directives: No Advance Directives Information Provided: Yes Physical Exam Vital Signs: Vital Signs: Last Vital Signs Temp 97.7 F 10/15/24 05:01 Pulse 95 10/15/24 05:01 Resp 16 10/15/24 05:01 BP 119/73 10/15/24 05:01 Pulse Ox 100 10/15/24 05:01 O2 Del Method Room Air 10/15/24 05:01 BMI result Body Mass Index 22.5 tachycardic and tachypneic on arrvval. vitals are now WNL. Const: General: cooperative, healthy appearing, comfortable and anxious Orientation/consciousness: patient oriented x3 Limitations: no limitations HEENT: Head: Yes normal to inspection, Yes No palpable skull fracture present, Yes normocephalic and Yes atraumatic Eyes: General: appearance normal, both eyes and all related structures Conjunctivae: conjunctivae normal Sclerae: sclerae normal Pupils: Equal, round and reactive pupils present EOM: EOMs intact bilaterally Neck: Neck: Yes normal visual inspection, Yes full ROM, Yes no lymphadenopathy and Yes no JVD Chest: Chest palpation & inspection: normal inspection of the chest and normal palpation of entire chest wall Resp: Effort & Inspection: normal respiratory effort and able to speak in complete sentences Auscultation: clear to auscultation bilaterally Cardio: Other: + 2+ radial pulses, no pitting edema Jugular venous distension: no JVD Rate: regular rate Rhythm: regular rhythm GI: Inspection: Yes normal to inspection Skin: General skin exam: no rashes or lesions noted Neuro: General: patient oriented x3 and gait normal Cranial nerves: Yes Equal, round and reactive pupils present Extrem: General: Yes normal to inspection and Yes no calf tenderness Course Course Course Narrative: CBC without leukocytosis or left shift. no anemia, h&h stable. ddimer negative - PE unlikely. CTA not warranted at this time. chemistry without acute electrolyte abnormality requiring intervention. troponin flat x2 (delta obtained approx 8 hrs later). EKG showing sinus sinus tachycardia with a rate of 103 beats per minute, QT 340, QTC 445, no acute ischemic changes or ST elevations. > on my initial evaluation, patient calm and sleeping in room. while in patient's room discussing her workup results, I did informed patient that I wanted to add on a D-dimer to rule out pulmonary embolism given her chest pain and tachycardia on arrival. Patient became visibly anxious, panicking, clutching her chest now stating that her symptoms have returned due to her medical anxiety and concern for PE. I had ordered 0.5 mg Ativan. Patient's symptoms have improved. given acute onset chest pain and palpitations (both today and yesterday) - likely panic attack. Advised to continue ativan at home as needed. stressed the importance of following up with her provider as she may require medication adjustments. declines SI/HI. at this time i feel patient is stable for discharge home. her family member at bedside will be driving her home as she has received Ativan. Patient has remained stable throughout ED visit today. Discussed worrisome signs and symptoms and when to return to the ED. All questions answered at this time. Patient is agreeable with disposition and stable for discharge. Medical Decision Making Medical Decision Making [facility] Narrative: 39 year old female with pmhx significant for anxiety presents to the ED today for evaluation of chest pain and palpitations that began acutely while seated on the toilet voiding around 2100 last night (9 hours ago). On arrival, vital signs notable for tachycardia and tachypnea. Not hypoxic. This patient presents with chest pain, with symptoms suggestive of noncardiac chest pain.? History without high risk features (not substernal, no exertional component, not relieved with rest).?Minimal CAD risk factors (including age). Exam without evidence of volume overload. EKG without signs of active ischemia. HEART score: 0. Given the timing of pain to ED presentation, plan to send delta troponin to evaluate for NSTEMI. PERC 1 - will obtain ddimer to r/o PE. Differential also includes anemia, electrolyte abnormality, dehydration, arrhythmia, anxiety panic attack. no upper respiratory symptoms to suggest viral syndrome, pneumonia, bronchitis. Presentation not consistent with pneumothorax, thoracic aortic dissection, cardiac effusion or tamponade. Plan: labs, dimer troponin, EKG, ativan, reassessment Differential Diagnosis Differential Diagnoses: The differential diagnosis associated with the presentation includes as above. Admission/Observation not indicated. Lab Data [facility] Lab Attestation statement: I reviewed the patient's lab results. as above. 10/14/24 23:29 10/14/24 23:29 Labs: Lab Results 10/14/24 10/15/24 Range/Units 23:29 07:17 WBC 10.3 (4.8-10.8) X10*3/uL RBC 4.52 (4.20-5.50) X10*6/uL Hgb 12.7 (12.0-16.0) g/dl Hct 38.1 (37.0-47.0) % MCV 84.3 (80.0-98.0) fL MCH 28.1 (27.0-33.0) pg MCHC 33.3 (31.0-35.0) g/dl RDW 12.8 (11.0-16.0) % Plt Count 275 (160-400) X10*3/uL MPV 10.0 (9.4-12.3) fL Absolute Nucleated RBC 0.000 (0.0-0.012) X10*3/uL Nucleated RBC % (auto) 0.0 (0.0-0.2) /100WBC PT 9.7 L (10.9-12.4) SEC INR 0.8 L (0.9-1.1) D-Dimer High Sensitivty < 150 NG/ML Sodium 141 (135-145) mmol/L Potassium 3.6 (3.3-5.1) mmol/L Chloride 111 H (96-108) mmol/L Carbon Dioxide 20 L (22-29) mmol/L Anion Gap 14 (12-20) BUN 12 (9-16) mg/dL Creatinine 0.86 (0.5-1.4) mg/dL Estim Creat Clear Calc 83.0 Estimated GFR > 60 Random Glucose 102 (60-115) mg/dL Calcium 9.1 (8.4-10.2) mg/dL Total Bilirubin 0.1 (0.0-1.0) mg/dL AST 21 (5-31) U/L ALT 30 (0-31) U/L Alkaline Phosphatase 90 (39-117) U/L Troponin I High Sens < 2.7 < 2.7 (<3.5-17.0) ng/L Total Protein 7.1 (6.5-8.0) g/dL Albumin 4.1 (3.5-5.0) g/dL Independent Interpretation I performed an independent interpretation of an: EKG Interpretation: EKG showing sinus sinus tachycardia with a rate of 103 beats per minute, QT 340, QTC 445, no acute ischemic changes or ST elevations. External Record Review External record reviewed: Inpatient record and Office record Prescription Management I considered prescription management with: Other (ativan) Chronic Conditions Patient?s care impacted by: Other (anxiety, gerd) Social Determinants Patient?s care significantly limited by Social Determinants of Health including: Other Social Determinant of Health Critical Care Time Critical Care Time Critical Care Time: No Discharge Plan Discharge Clinical Impression: Atypical chest pain, Anxiety Patient Disposition: Home, Self-Care Instructions: Chest Pain (ED), Anxiety (ED) Additional Instructions: You were evaluated in the Emergency Department today for chest pain. Your evaluation has shown no signs of medical conditions requiring emergent intervention at this time, however I recommend that you follow up with your primary care provider or your environmental health inspector as soon as possible for further testing as an outpatient. If you do not have one, a referral has been provided. Please call them to make an appointment, they will not call you. Your blood work is reassuring. Your heart enzyme (troponin) was normal x2. Your d-dimer, a marker for blood clots, was negative. The EKG of your heart is reassuring. You were treated with 0.5mg of ativan. Please follow with your out patient provider as you may require medication changes and/ or therapy on top of your current medication regimen. Return to the Emergency Department if you experience worsening or uncontrolled chest pain, shortness of breath, light headedness, feeling faint, nausea, vomiting, or any other concerning symptoms. Prescriptions: No Action benzonatate 100 mg capsule 100 mg PO TID PRN (Reason: cough) Qty: 10 0RF ibuprofen 600 mg tablet 600 mg PO Q8H PRN (Reason: fever or pain) Qty: 20 0RF Stand Alone Forms: Work/School Release Print Language: Belarusian
[2024-10-15 07:35] LABS: D Dimer High Sensitivity < 150 NG/ML
[2024-10-15 07:43] LABS: Troponin-I High Sensitivity < 2.7 ng/L (<3.5-17.0)
[2024-10-15] MEDS: LORazepam 0.5 MG TABLET PO (08:12)
[2024-10-15 08:15] VITALS: BP 119/73; PULSE 95; RESP 16; TEMP 36.5; O2SAT 100
== END 2024-10-15 08:16 | disposition home or self-care (01) ==
PROVIDERS: Physician Assistant Medical; Emergency Provider Emergency Medicine; PCP Internal Medicine
DX: R07.9 Chest pain, unspecified (principal); R00.2 Palpitations; R42 Dizziness and giddiness; F41.9 Anxiety disorder, unspecified
CPT/HCPCS: 36415; 80053; 84484; 85027; 85379; 85610; 93005; 99283; 99284

== ENCOUNTER → 2024-10-14 22:22 | Outpatient (BNV) | payer OTHER, SELFPAY | PROVIDERS: Emergency Provider Emergency Medicine; PCP Internal Medicine; Visit Provider Internal Medicine Cardiovascular Disease | DX: R00.0 Tachycardia, unspecified (principal) | CPT/HCPCS: 93010 ==